=== PATIENT | female | born 1955 | race African-American/Black ===

== ENCOUNTER → 2016-04-04 | Outpatient (CLI) | payer MEDICARE ==
[2013-11-22 18:00] VITALS: BP 154/81
[~2016-04-04] MED LIST: AMLO10TA4 PO; ASPI-482 PO; CLON0.2T PO; HYDR200T5 PO; LOSA1TAB17 PO; MELO-156 PO
--- NOTE | 2016-04-04 12:19 | KCIC ---
PROCEDURE Bilateral digital screening mammogram. HISTORY 60-year-old female presents for screening mammography. TECHNIQUE Full field digital craniocaudal, exaggerated craniocaudal and mediolateral oblique views of both breasts are obtained. Computer-aided detection is applied. COMPARISON 03/09/2015 FINDINGS Breast parenchymal composition: Level C - Heterogeneously dense. There is a round circumscribed nodule within the right axillary tail, likely a lymph node. This is not seen on prior studies likely due to the prior field of view. There are benign calcifications. There is no architectural distortion. IMPRESSION BI-RADS Category 0: Additional imaging needed. Further evaluation with a right axillary tail sonogram to confirm benign morphology of a suspected lymph node is recommended, given suspected exclusion of this finding from the field of view on prior studies. Mammography is not 100% sensitive in detecting breast cancer. Therefore, a self breast exam and a clinical breast exam are very important. A negative mammogram does not negate a clinically suspicious finding and should not result in a delay in biopsying a clinically suspicious abnormality. This patient's information has been entered into a reminder system for the patient to be notified with the results of this examination and a target date for her next mammograms. Electronically signed by: Aleena Cruz (Apr 04, 2016 12:17:11)
== END | disposition home or self-care (01) ==
LOC: KCIC MAMMO 11:04
PROVIDERS: ATTEND Family Medicine
DX: Z12.31 Encounter for screening mammogram for malignant neoplasm of breast (principal)
CPT/HCPCS: G0202; 77067

== ENCOUNTER → 2016-04-10 | Outpatient (CLI) | payer MEDICARE ==
[2013-11-22 18:00] VITALS: BP 154/81
--- NOTE | 2016-05-01 08:52 | KCIC ---
PROCEDURE Right breast ultrasound. HISTORY Abnormal screening mammogram. TECHNIQUE Limited real-time grayscale imaging of the right upper breast and axilla is performed and images are obtained. COMPARISON Bilateral screening mammogram from 04/04/2016. FINDINGS There is a well-defined morphologically normal lymph node measuring 8.3 x 1.8 x 5.1 millimeter in the right axilla. This corresponds to the mammographic abnormality. No additional solid or cystic mass lesion is identified. IMPRESSION A benign appearing morphologically normal lymph node in the right axilla corresponds to the mammographic abnormality. No further workup is considered necessary. BI-RADS 2. Patient may return for annual screening mammography in 1 year. Electronically signed by: Olivia Chiang MD (May 01, 2016 08:51:37)
== END | disposition home or self-care (01) ==
LOC: KCIC US 08:12
PROVIDERS: ATTEND Family Medicine
DX: R92.8 Other abnormal and inconclusive findings on diagnostic imaging of breast (principal)
CPT/HCPCS: 76641

== ENCOUNTER 2016-06-24 02:56 | Emergency (ER) | payer MEDICARE ==
[~2016-06-24] VITALS: Ht 162.6 cm; Wt 83.9 kg
[2016-06-24 03:13] VITALS: BP 169/86
--- NOTE | 2016-06-24 03:21 | PHYS DOC ---
Past Medical History Past Medical History: CVA, Hypertension Past Surgical History: Hysterectomy, Other Additional Past Surgical Histo: bilat knee replacement Alcohol Use: None Drug Use: None Adult General Chief Complaint Chief Complaint: Neck Pain [facility] HPI Patient is a 60 year old female who presents with left-sided neck pain and sharp shooting pain down her left arm. Patient states his positional and when she turns her head to the left the pain is reproducible. She denies any trauma to the neck. Patient denies any chest pain or shortness of breath. Patient states she has had blood pressure but no specific cardiac history. She takes tramadol which is prescribed her from her substance addiction coordinator and is unable to take Motrin but also takes Tylenol. Pertinent physical exam findings: When patient turns her head to the left and axial load is applied to the top of the head this sharp shooting pain is reproduced on the left arm ED course: 317: C-spine x-ray ordered, Decadron 10 mg given IM 0330: Discussed x-ray results with the patient and the plan to treat with steroids and the take home pain medications for further discomfort. Patient is comfortable going home. Pertinent results: Extremities C-spine shows DJD no obvious fracture seen ED medical decision making: After reviewing the chart, chief complaint, history of present illness, past medical history, physical exam, x-rays I do not believe the patient has a severe neck fracture warranted further workup and admission at this time. I believe the patient has a cervical radiculopathy from her DJD. We'll place the patient on steroids and the patient are to has pain medication at home from her substance addiction coordinator. Recommend she follow up with her PCP and her substance addiction coordinator for further evaluation and has been in the next 1-2 days. Additional verbal discharge instructions were provided to the patient and that if symptoms get worse or any new symptoms arise that are worrisome to the patient she is to return to the emergency room immediately. Review of Systems Review of Systems Constitutional: Denies fever or chills [] Eyes: Denies change in visual acuity, redness, or eye pain [] HENT: Neck pain Respiratory: Denies cough or shortness of breath [] Cardiovascular: No additional information not addressed in HPI [] GI: Denies abdominal pain, nausea, vomiting, bloody stools or diarrhea [] : Denies dysuria or hematuria [] Musculoskeletal: Denies back pain or joint pain [] Integument: Denies rash or skin lesions [] Current Medications Current Medications Current Medications Medications (Trade) Dose Ordered Sig/Pearl Start Time Stop Time Status Last Admin Dose Admin Dexamethasone Sodium Phosphate (Decadron) 10 mg 1X ONCE 06/24/16 03:45 06/24/16 03:46 06/24/16 03:29 10 MG Allergies Allergies Allergies Coded Allergies Type Severity Reaction Last Updated Verified No Known Drug Allergies 11/11/13 No Physical Exam Physical Exam Constitutional: Well developed, well nourished, no acute distress, non-toxic appearance. [] HENT: Normocephalic, atraumatic, bilateral external ears normal, oropharynx moist, no oral exudates, nose normal. [] Eyes: PERRLA, EOMI, conjunctiva normal, no discharge. [] Neck: When patient turns her head to the left and axial compression load is applied to the top of the head there are sharp shooting pain radiating down to her left shoulder and left arm [] Cardiovascular:Heart rate regular rhythm, no murmur [] Lungs & Thorax: Bilateral breath sounds clear to auscultation [] Abdomen: Bowel sounds normal, soft, no tenderness, no masses, no pulsatile masses. [] Skin: Warm, dry, no erythema, no rash. [] Back: No tenderness, no CVA tenderness. [] Extremities: No tenderness, no cyanosis, no clubbing, ROM intact, no edema. [] Neurologic: Alert and oriented X 3, normal motor function, normal sensory function, no focal deficits noted. [] Psychologic: Affect normal, judgement normal, mood normal. [] Current Patient Data Vital Signs Vital Signs Date Time Temp Pulse Resp B/P (MAP) Pulse Ox O2 Delivery O2 Flow Rate FiO2 06/24/16 03:13 99.3 83 20 95 Room Air 99.3 EKG EKG [] Radiology/Procedures Radiology/Procedures Three-view x-ray of the C-spine No obvious fracture [] Course & Med Decision Making Course & Med Decision Making Pertinent Labs and Imaging studies reviewed. (See chart for details) [] Dragon Disclaimer Dragon Disclaimer This electronic medical record was generated, in whole or in part, using a voice recognition dictation system. Departure Departure Impression: Primary Impression: Radiculopathy affecting upper extremity Additional Impression: Cervical radiculopathy Disposition: 01 HOME, SELF-CARE Condition: IMPROVED Referrals: PADMINI NUR MD (PCP) Patient Instructions: Cervical Radiculopathy Additional Instructions: Please follow-up with PCP in one to 2 days Scripts Prednisone (PREDNISONE) 50 Mg Tablet 1 TAB PO DAILY, #5 TAB Prov: LOTTIE PENA DO 06/24/16 Problem Qualifiers LOTTIE PENA DO June 24, 2016 03:21
[2016-06-24] MEDS ORDERED: PRED50TA PO (03:40)
[2016-06-24] MEDS ORDERED: DEXAMETHASONE SOD PHOS 4 MG/ML VIAL IM ONE (03:45)
--- NOTE | 2016-06-24 08:01 | RAD ---
Examination: 3 views of the cervical spine History: History of neck pain Comparison: None available Findings: Severe degenerative changes identified in the cervical spine throughout. There may be bony fusion of the C4-C5 vertebral bodies. The facets appear to be well aligned. No evidence of prevertebral soft tissue swelling identified. The lateral masses of C1 are aligned with C2 vertebra. The C2 dens appears intact. Impression: Severe degenerative changes cervical spine.
== END 2016-06-24 03:57 | disposition home or self-care (01) ==
LOC: ER 02:56
DX: M54.12 Radiculopathy, cervical region (principal); I10 Essential (primary) hypertension; Z86.73 Personal history of transient ischemic attack (TIA), and cerebral infarction without residual deficits
CPT/HCPCS: 72040; 96372; 99284; J1100

== ENCOUNTER 2016-07-02 01:19 | Emergency (ER) | payer MEDICARE ==
[~2016-07-02] VITALS: Ht 165.1 cm; Wt 83.9 kg
[~2016-07-02 01:19] MED LIST changes: +PRED50TA PO
[2016-07-02] MEDS ORDERED: NAPROXEN 250 MG TABLET PO ONE (02:30)
--- NOTE | 2016-07-02 02:49 | ED.ADGEN ---
Past Medical History Past Medical History: CVA, Hypertension Past Surgical History: Hysterectomy, Other Additional Past Surgical Histo: bilat knee replacement Alcohol Use: None Drug Use: None Adult General Chief Complaint Chief Complaint: Neck Pain HPI HPI Patient is a 60 year old woman, history of CVA, hypertension, who presents emergency Department with a complaint of left-sided neck pain. Patient was seen for this complaint several days ago in the emergency department. At that time she was diagnosed with a likely radiculopathy from arthritis in her neck, prescribed steroids that she she has been taking. Patient has an appointment to follow up with a medical billing specialist on the of this month, follow-up of an evaluation to diagnose possible rheumatoid arthritis. Patient states that she did attempt to follow-up with a primary care provider but has not yet taken a call back from office. She states that the pain is isolated and the left side of her neck, is tender to palpation, is painful with motion. She states she initially noted the pain several mornings ago when she woke up, states she could 've slept on it wrong to initially trigger the symptoms but it has been persistent. No trauma, no recurrent visits to chiropractor, no vision changes, no radiation of the pain into the extremities or chest or back, she states she had one episode of vomiting today after taking her prednisone pill and an empty stomach, denies any nausea or vomiting since then, any abdominal pain. No weakness, numbness or tingling. Review of Systems Review of Systems Constitutional: Denies fever or chills. [] Eyes: Denies change in visual acuity. [] HENT: Denies nasal congestion or sore throat. [] Respiratory: Denies cough or shortness of breath. [] Cardiovascular: Denies chest pain or edema. [] GI: Denies abdominal pain, nausea, vomiting, bloody stools or diarrhea. [] : Denies dysuria. [] Musculoskeletal: Denies back pain or joint pain. Left-sided neck pain, worse with motion. Integument: Denies rash. [] Neurologic: Denies headache, focal weakness or sensory changes. [] Endocrine: Denies polyuria or polydipsia. [] Lymphatic: Denies swollen glands. [] Psychiatric: Denies depression or anxiety. [] Current Medications Current Medications Current Medications Medications (Trade) Dose Ordered Sig/Pearl Start Time Stop Time Status Last Admin Dose Admin Diazepam (Valium) 5 mg 1X ONCE 07/02/16 02:30 07/02/16 02:31 DC 07/02/16 02:54 5 MG Naproxen (Naprosyn) 250 mg 1X ONCE 07/02/16 02:30 07/02/16 02:31 DC 07/02/16 02:54 250 MG Allergies Allergies Allergies Coded Allergies Type Severity Reaction Last Updated Verified No Known Drug Allergies 11/11/13 No Physical Exam Physical Exam Constitutional: Well developed, well nourished, no acute distress, non-toxic appearance. [] HENT: Normocephalic, atraumatic, bilateral external ears normal, oropharynx moist, no oral exudates, nose normal. [] Eyes: PERRLA, EOMI, conjunctiva normal, no discharge. [] Neck: Normal range of motion, tenderness palpation along the lateral aspect of the left neck, extending into the sternocleidomastoid muscles, tissue tension noted in this region, no midline tenderness, no sepsis or deformities, no lesions or evidence of injury, supple, no stridor. [] Cardiovascular:Heart rate regular rhythm, no murmur, S1, S2, rubs or gallops. [] Lungs & Thorax: Bilateral breath sounds clear to auscultation , no wheezing, rhonchi, rales. No chest tenderness or crepitus. [] Abdomen: Bowel sounds normal, soft, no tenderness, no rebound, rigidity, no guarding, no masses, no pulsatile masses. [] Skin: Warm, dry, no erythema, no rash. [] Back: No tenderness, no CVA tenderness. [] Extremities: No tenderness, no cyanosis, no clubbing, ROM intact, no edema. Negative Homans sign. [] Neurologic: Alert and oriented X 3, normal motor function, normal sensory function, no focal deficits noted. [] Psychologic: Affect normal, judgement normal, mood normal. [] Current Patient Data Vital Signs Vital Signs Date Time Temp Pulse Resp B/P (MAP) Pulse Ox O2 Delivery O2 Flow Rate FiO2 07/02/16 01:50 97.1 84 16 171/80 (110) 100 Room Air 97.1 EKG EKG Not indicated. [] Radiology/Procedures Radiology/Procedures [][facility] [address] [place] [address] IMAGING REPORT Signed PATIENT: AMBER MASON ACCOUNT: [id number] : 1955 LOCATION: ER AGE: 60 SEX: F EXAM STATUS: DEP ER ORD. PHYSICIAN: LOTTIE PENA DO REASON: neck pain PROCEDURE: CERVICAL SPINE 2-3V Examination: 3 views of the cervical spine History: History of neck pain Comparison: None available Findings: Severe degenerative changes identified in the cervical spine throughout. There may be bony fusion of the C4-C5 vertebral bodies. The facets appear to be well aligned. No evidence of prevertebral soft tissue swelling identified. The lateral masses of C1 are aligned with C2 vertebra. The C2 dens appears intact. Impression: Severe degenerative changes cervical spine. DICTATED and SIGNED BY: BRYAN MAYERS MD DATE: 06/24/16757 CC: PADMINI NUR MD; LOTTIE PENA DO ~ Course & Med Decision Making Course & Med Decision Making Pertinent Labs and Imaging studies reviewed. (See chart for details) Patient received I am Valium, and oral naproxen in the ED was tolerating without issue. On reevaluation she states she is feeling much better, and is able to move the neck without discomfort. Patient with ambulatory trial in the emergency department, and voiding without difficulty, discussed importance of follow-up with her primary care provider and medical billing specialist for additional evaluation, medication instructions and precautions, as patient is being discharged with low-dose cyclobenzaprine and naproxen to be used as needed, patient voiced understanding with plan to follow-up, and medication precautions and instructions as stated. Discharged home in stable condition with her with plan as above. Dragon Disclaimer Dragon Disclaimer This electronic medical record was generated, in whole or in part, using a voice recognition dictation system. Departure Impression: Primary Impression: Neck pain Additional Impression: Muscle pain Disposition: 01 HOME, SELF-CARE Condition: IMPROVED Scripts Cyclobenzaprine Hcl (CYCLOBENZAPRINE HCL) 5 Mg Tablet 1 TAB PO TID, #12 TAB Prov: ANTONIA WILLETT DO 07/02/16 Naproxen (NAPROXEN) 250 Mg Tablet 250 MG PO BID, #10 Prov: ANTONIA WILLETT DO 07/02/16 Problem Qualifiers ANTONIA WILLETT DO July 02, 2016 02:49
[2016-07-02 03:30] VITALS: BP 137/74
[2016-07-02] MEDS ORDERED: NAPR250T2 PO (03:52)
[2016-07-02] MEDS ORDERED: CYCL5TAB PO (03:52)
== END 2016-07-02 04:00 | disposition home or self-care (01) ==
LOC: ER 01:19
DX: M46.92 Unspecified inflammatory spondylopathy, cervical region (principal); M79.1 Myalgia; I10 Essential (primary) hypertension; Z86.73 Personal history of transient ischemic attack (TIA), and cerebral infarction without residual deficits; Z96.653 Presence of artificial knee joint, bilateral
CPT/HCPCS: 96372; 99284; J3360

== ENCOUNTER → 2017-05-10 | Outpatient (CLI) | payer MEDICARE | END | disposition home or self-care (01) | LOC: KCIC 14:41 | DX: M43.16 Spondylolisthesis, lumbar region (principal); M51.37 Other intervertebral disc degeneration, lumbosacral region; M41.86 Other forms of scoliosis, lumbar region; M81.8 Other osteoporosis without current pathological fracture | CPT/HCPCS: 72110 ==

== ENCOUNTER 2017-05-21 16:14 | Emergency (ER) | payer MEDICARE ==
[2017-05-21 17:54] LABS: BILIRUBIN,URINE NEGATIVE (NEG); CLARITY,URINE CLEAR; COLOR,URINE YELLOW; GLUCOSE,URINE NEGATIVE (NEG); NITRITE,URINE NEGATIVE (NEG); PH,URINE 6.5; PROTEIN,URINE NEGATIVE (NEG-TRACE)
[2017-05-21] MEDS: ONDANSETRON PF 4 MG/2 ML VIAL. IV (18:31)
[2017-05-21] MEDS: KETOROLAC 15 MG/ML VIAL. IV (18:32)
[2017-05-21 18:34] LABS: BACTERIA,URINE FEW /HPF (0-FEW); RBC,URINE OCC /HPF (0-2); SQUAMOUS EPITHELIAL CELL,UR FEW /LPF; WBC,URINE OCC /HPF (0-4)
[2017-05-21] MEDS: fentaNYL PF VIAL 100 MCG/2 ML VIAL IV ×2 (18:36→20:11)
[2017-05-21 18:37] LABS: ADD MAN DIFF? NO
[2017-05-21 18:40] LABS: BASO # 0.1 x10^3/uL (0.0-0.2); BASO % 1 % (0-3); EOS # 0.8 x10^3/uL (0.0-0.7); EOS % 15 % (0-3); HEMATOCRIT 36.3 % (36.0-47.0); LYMPH # 1.8 x10^3/uL (1.0-4.8); LYMPH % 32 % (24-48); MEAN CORPUSCULAR HEMOGLOBIN 29 pg (25-35); MEAN CORPUSCULAR HGB CONC 33 g/dL (31-37); MEAN CORPUSCULAR VOLUME 89 fL (79-100); MONO # 0.9 x10^3/uL (0.0-1.1); MONO % 16 % (0-9); NEUT % 36 % (31-73); PLATELET COUNT 191 x10^3/uL (140-400); RED BLOOD COUNT 4.08 x10^6/uL (3.50-5.40); RED CELL DISTRIBUTION WIDTH 13.4 % (11.5-14.5); WHITE BLOOD COUNT 5.5 x10^3/uL (4.0-11.0)
[2017-05-21] MEDS: DEXAMETHASONE SOD PHOS 4 MG/ML VIAL IV (18:40)
[2017-05-21 18:55] LABS: ANION GAP 7 (6-14); BLOOD UREA NITROGEN 20 mg/dL (7-20); BUN/CREATININE RATIO 14 (6-20); CALCIUM 9.6 mg/dL (8.5-10.1); CARBON DIOXIDE 29 mmol/L (21-32); CHLORIDE 104 mmol/L (98-107); CREATININE 1.4 mg/dL (0.6-1.0); GFR 46.6; GLUCOSE 94 mg/dL (70-99); SODIUM 140 mmol/L (136-145)
[2017-05-21 19:02] LABS: ALBUMIN 3.8 g/dL (3.4-5.0); ALBUMIN/GLOBULIN RATIO 0.9 (1.0-1.7); ALK PHOS 112 U/L (46-116); ALT (SGPT) 26 U/L (14-59); AST (SGOT) 24 U/L (15-37); TOTAL BILIRUBIN 0.3 mg/dL (0.2-1.0); TOTAL PROTEIN 7.9 g/dL (6.4-8.2)
[2017-05-21 19:03] LABS: TROPONINI < 0.017 ng/mL (0.000-0.055)
[2017-05-21] MEDS: POTASSIUM CHLORIDE 20 MEQ TABLET.ER. PO (20:10)
== END 2017-05-21 20:28 | disposition home or self-care (01) ==
LOC: ER 16:14
DX: M06.9 Rheumatoid arthritis, unspecified (principal); G89.29 Other chronic pain; I10 Essential (primary) hypertension; Z86.73 Personal history of transient ischemic attack (TIA), and cerebral infarction without residual deficits; Z96.653 Presence of artificial knee joint, bilateral
CPT/HCPCS: 36415; 72128; 72131; 80053; 81001; 84484; 85025; 93005; 96374; 96375; 96376; 99285-25; J1100; J1885; J2405; J3010

== ENCOUNTER → 2017-05-23 | Outpatient (CLI) | payer MEDICARE | END | disposition home or self-care (01) | LOC: KCIC MRI 12:56 | DX: M48.061 Spinal stenosis, lumbar region without neurogenic claudication (principal); M51.36 Other intervertebral disc degeneration, lumbar region; M25.78 Osteophyte, vertebrae | CPT/HCPCS: 72148 ==

== ENCOUNTER → 2017-06-12 | Outpatient (CLI) | payer MEDICARE ==
[~2017-06-12] MED LIST changes: -AMLO10TA4 PO; -ASPI-482 PO; -CLON0.2T PO; -HYDR200T5 PO; +IOHEXOL 180 MG/ML 10 ML VIAL.; -LOSA1TAB17 PO; -MELO-156 PO; -PRED50TA PO; +methylPREDNISolone ACETATE 40 MG/ML VIAL.; +methylPREDNISolone ACETATE 80 MG/ML VIAL.
== END | disposition home or self-care (01) ==
LOC: PNCL 11:53
DX: M51.16 Intervertebral disc disorders with radiculopathy, lumbar region (principal); I10 Essential (primary) hypertension; M19.90 Unspecified osteoarthritis, unspecified site; H91.92 Unspecified hearing loss, left ear; Z86.73 Personal history of transient ischemic attack (TIA), and cerebral infarction without residual deficits; Z90.710 Acquired absence of both cervix and uterus; Z96.653 Presence of artificial knee joint, bilateral; Z98.49 Cataract extraction status, unspecified eye; Z79.82 Long term (current) use of aspirin; Z79.899 Other long term (current) drug therapy; Z82.49 Family history of ischemic heart disease and other diseases of the circulatory system; Z83.3 Family history of diabetes mellitus; Z82.0 Family history of epilepsy and other diseases of the nervous system
CPT/HCPCS: 62323; J1030; J1040; Q9965

== ENCOUNTER → 2017-06-26 | Outpatient (CLI) | payer MEDICARE | END | disposition home or self-care (01) | LOC: PNCL 10:45 | DX: M51.16 Intervertebral disc disorders with radiculopathy, lumbar region (principal) | CPT/HCPCS: 99214 ==

== ENCOUNTER → 2017-07-10 | Outpatient (CLI) | payer MEDICARE ==
[~2017-07-10] MED LIST changes: +LIDOCAINE 1% PF 2 ML VIAL.
== END ==
LOC: PNCL 09:13
DX: M51.16 Intervertebral disc disorders with radiculopathy, lumbar region (principal); I10 Essential (primary) hypertension; M06.9 Rheumatoid arthritis, unspecified; F41.9 Anxiety disorder, unspecified; F17.200 Nicotine dependence, unspecified, uncomplicated; Z90.710 Acquired absence of both cervix and uterus; Z96.653 Presence of artificial knee joint, bilateral; Z90.721 Acquired absence of ovaries, unilateral; Z86.73 Personal history of transient ischemic attack (TIA), and cerebral infarction without residual deficits
CPT/HCPCS: 62323; J1030; J1040; Q9965

== ENCOUNTER → 2017-07-18 | Outpatient (CLI) | payer MEDICARE | END | disposition home or self-care (01) | LOC: KCIC MAMMO 12:08 | DX: Z12.31 Encounter for screening mammogram for malignant neoplasm of breast (principal) | CPT/HCPCS: 77067 ==

== ENCOUNTER → 2017-08-23 | Outpatient (CLI) | payer MEDICARE | END | disposition home or self-care (01) | LOC: PNCL 09:12 | DX: M51.16 Intervertebral disc disorders with radiculopathy, lumbar region (principal); I10 Essential (primary) hypertension; F41.9 Anxiety disorder, unspecified; Z90.710 Acquired absence of both cervix and uterus; Z90.721 Acquired absence of ovaries, unilateral; Z90.79 Acquired absence of other genital organ(s); M06.9 Rheumatoid arthritis, unspecified; Z86.73 Personal history of transient ischemic attack (TIA), and cerebral infarction without residual deficits; Z96.653 Presence of artificial knee joint, bilateral; F17.200 Nicotine dependence, unspecified, uncomplicated | CPT/HCPCS: 62323; J1030; J1040; Q9965 ==

== ENCOUNTER → 2018-01-11 | Outpatient (CLI) | payer MEDICARE ==
[2017-05-21 20:20] VITALS: BP 144/81
[~2018-01-11] MED LIST changes: +ADAL40PE SQ; +AMLO10TA4 PO; +ARAVA20 MG PO; +ASPI-482 PO; +CLON0.2T PO; +CYCL5TAB PO; +GABA-585 PO; +HYDR-2761 PO; +HYDR200T5 PO; -IOHEXOL 180 MG/ML 10 ML VIAL.; -LIDOCAINE 1% PF 2 ML VIAL.; +LOSA1TAB22 PO; +MELO7.5T29 PO; +NAPR250T6 PO; +OXYC1TAB15 PO; +PRED50TA PO; +TRAM50TA PO; -methylPREDNISolone ACETATE 40 MG/ML VIAL.; -methylPREDNISolone ACETATE 80 MG/ML VIAL.
--- NOTE | 2018-01-11 15:48 | KCIC ---
Right lower extremity arterial duplex ultrasound 01/11/2018 INDICATION: Right lower extremity nonhealing wound COMPARISON STUDY: None Discussion: Ultrasound evaluation of the major arteries of the right lower extremity was performed including color Doppler imaging spectral analysis. Mild diffuse atherosclerotic vascular disease is seen throughout the major arteries of the right lower extremity. No definitively hemodynamically significant stenosis is identified in regards to velocity elevation, or high-grade visual stenosis on color Doppler imaging. No major arterial occlusion is identified. IMPRESSION: No sonographic evidence of hemodynamically significant stenosis involving the major arteries of the right lower extremity. Electronically signed by: Gareth Glynn MD (01/11/2018 3:44 PM) [id number]
== END | disposition home or self-care (01) ==
LOC: KCIC US 13:51
PROVIDERS: ATTEND Family Medicine
DX: S81.801D Unspecified open wound, right lower leg, subsequent encounter (principal); I70.291 Other atherosclerosis of native arteries of extremities, right leg; X58.XXXD Exposure to other specified factors, subsequent encounter
CPT/HCPCS: 93926

== ENCOUNTER → 2018-02-19 | Outpatient (CLI) | payer MEDICARE ==
[2017-05-21 20:20] VITALS: BP 144/81
== END | disposition home or self-care (01) ==
LOC: PMGWOUND 08:14
PROVIDERS: ATTEND Emergency Medicine Undersea and Hyperbaric Medicine
DX: L97.811 Non-pressure chronic ulcer of other part of right lower leg limited to breakdown of skin (principal); L88 Pyoderma gangrenosum; I10 Essential (primary) hypertension; M06.9 Rheumatoid arthritis, unspecified; F41.9 Anxiety disorder, unspecified; Z90.710 Acquired absence of both cervix and uterus; Z86.73 Personal history of transient ischemic attack (TIA), and cerebral infarction without residual deficits
CPT/HCPCS: G0463

== ENCOUNTER → 2018-02-26 | Outpatient (CLI) | payer MEDICARE ==
[2017-05-21 20:20] VITALS: BP 144/81
== END | disposition home or self-care (01) ==
LOC: PMGWOUND 08:26
PROVIDERS: ATTEND Emergency Medicine Undersea and Hyperbaric Medicine
DX: L97.212 Non-pressure chronic ulcer of right calf with fat layer exposed (principal); L88 Pyoderma gangrenosum; I10 Essential (primary) hypertension; M06.9 Rheumatoid arthritis, unspecified; F41.9 Anxiety disorder, unspecified; Z87.891 Personal history of nicotine dependence; Z90.710 Acquired absence of both cervix and uterus; Z86.73 Personal history of transient ischemic attack (TIA), and cerebral infarction without residual deficits
CPT/HCPCS: 11042

== ENCOUNTER → 2018-03-05 | Outpatient (CLI) | payer MEDICARE ==
[2017-05-21 20:20] VITALS: BP 144/81
== END | disposition home or self-care (01) ==
LOC: PMGWOUND 08:57
PROVIDERS: ATTEND Emergency Medicine Undersea and Hyperbaric Medicine
DX: L97.211 Non-pressure chronic ulcer of right calf limited to breakdown of skin (principal); L88 Pyoderma gangrenosum; I10 Essential (primary) hypertension; M06.9 Rheumatoid arthritis, unspecified; F41.9 Anxiety disorder, unspecified; Z87.891 Personal history of nicotine dependence; Z90.710 Acquired absence of both cervix and uterus; Z96.653 Presence of artificial knee joint, bilateral; Z86.73 Personal history of transient ischemic attack (TIA), and cerebral infarction without residual deficits
CPT/HCPCS: 97597

== ENCOUNTER → 2018-03-12 | Outpatient (CLI) | payer MEDICARE ==
[2017-05-21 20:20] VITALS: BP 144/81
== END | disposition home or self-care (01) ==
LOC: PMGWOUND 08:51
PROVIDERS: ATTEND Nurse Practitioner Family
DX: L97.811 Non-pressure chronic ulcer of other part of right lower leg limited to breakdown of skin (principal); L88 Pyoderma gangrenosum; I10 Essential (primary) hypertension; M06.9 Rheumatoid arthritis, unspecified; F41.9 Anxiety disorder, unspecified; Z87.891 Personal history of nicotine dependence; Z90.710 Acquired absence of both cervix and uterus; Z86.73 Personal history of transient ischemic attack (TIA), and cerebral infarction without residual deficits
CPT/HCPCS: 93923; 97597

== ENCOUNTER → 2018-03-19 | Outpatient (CLI) | payer MEDICARE ==
[2017-05-21 20:20] VITALS: BP 144/81
== END | disposition home or self-care (01) ==
LOC: PMGWOUND 09:04
PROVIDERS: ATTEND Emergency Medicine Undersea and Hyperbaric Medicine
DX: L88 Pyoderma gangrenosum (principal); I10 Essential (primary) hypertension; M06.9 Rheumatoid arthritis, unspecified; F41.9 Anxiety disorder, unspecified; Z87.891 Personal history of nicotine dependence; Z90.710 Acquired absence of both cervix and uterus; Z86.73 Personal history of transient ischemic attack (TIA), and cerebral infarction without residual deficits
CPT/HCPCS: 99214; G0463

== ENCOUNTER → 2018-03-25 | Outpatient (CLI) | payer MEDICARE ==
[2017-05-21 20:20] VITALS: BP 144/81
== END | disposition home or self-care (01) ==
LOC: PMGWOUND 12:57
PROVIDERS: ATTEND Emergency Medicine Undersea and Hyperbaric Medicine
DX: L88 Pyoderma gangrenosum (principal); I10 Essential (primary) hypertension; M16.9 Osteoarthritis of hip, unspecified; F41.9 Anxiety disorder, unspecified; M06.9 Rheumatoid arthritis, unspecified; Z96.653 Presence of artificial knee joint, bilateral; Z87.891 Personal history of nicotine dependence; Z90.710 Acquired absence of both cervix and uterus; Z86.73 Personal history of transient ischemic attack (TIA), and cerebral infarction without residual deficits
CPT/HCPCS: 99214; G0463

== ENCOUNTER → 2018-03-25 | Outpatient (CLI) | payer MEDICARE ==
[2017-05-21 20:20] VITALS: BP 144/81
--- NOTE | 2018-03-25 16:18 | RAD ---
Right lower extremity venous insufficiency ultrasound exam, 03/25/2018: History: Nonhealing wound Duplex evaluation of the greater saphenous and lesser saphenous veins in the right lower extremity was performed including grayscale, color-flow and spectral Doppler analysis. The right greater saphenous vein is patent throughout its course without significant reflux. It measures 9-10 mm at the saphenofemoral junction level. A patent anterior accessory saphenous vein is also noted in the right thigh. The right lesser saphenous vein is also patent and does not demonstrate significant reflux. Mild subcutaneous edema is present in the right lower leg. IMPRESSION: No evidence of significant venous reflux in the saphenous veins in the right lower extremity.
== END | disposition home or self-care (01) ==
LOC: US 14:10
PROVIDERS: ATTEND Nurse Practitioner Family
DX: S80.921D Unspecified superficial injury of right lower leg, subsequent encounter (principal); R60.0 Localized edema; X58.XXXD Exposure to other specified factors, subsequent encounter
CPT/HCPCS: 93971

== ENCOUNTER → 2018-04-01 | Outpatient (CLI) | payer MEDICARE ==
[2017-05-21 20:20] VITALS: BP 144/81
== END | disposition home or self-care (01) ==
LOC: PMGWOUND 09:10
PROVIDERS: ATTEND Emergency Medicine Undersea and Hyperbaric Medicine
DX: L97.821 Non-pressure chronic ulcer of other part of left lower leg limited to breakdown of skin (principal); L88 Pyoderma gangrenosum; M06.9 Rheumatoid arthritis, unspecified; I10 Essential (primary) hypertension; I73.9 Peripheral vascular disease, unspecified; F41.9 Anxiety disorder, unspecified; M16.10 Unilateral primary osteoarthritis, unspecified hip; Z87.891 Personal history of nicotine dependence; Z90.710 Acquired absence of both cervix and uterus; I25.10 Atherosclerotic heart disease of native coronary artery without angina pectoris; Z86.73 Personal history of transient ischemic attack (TIA), and cerebral infarction without residual deficits
CPT/HCPCS: 99214; G0463

== ENCOUNTER → 2018-04-08 | Outpatient (CLI) | payer MEDICARE ==
[2017-05-21 20:20] VITALS: BP 144/81
== END | disposition home or self-care (01) ==
LOC: PMGWOUND 09:17
PROVIDERS: ATTEND Emergency Medicine Undersea and Hyperbaric Medicine
DX: L88 Pyoderma gangrenosum (principal); I10 Essential (primary) hypertension; M06.9 Rheumatoid arthritis, unspecified; F41.9 Anxiety disorder, unspecified; E78.5 Hyperlipidemia, unspecified; I73.9 Peripheral vascular disease, unspecified; M16.10 Unilateral primary osteoarthritis, unspecified hip; I25.10 Atherosclerotic heart disease of native coronary artery without angina pectoris; Z90.710 Acquired absence of both cervix and uterus; Z87.891 Personal history of nicotine dependence; Z86.73 Personal history of transient ischemic attack (TIA), and cerebral infarction without residual deficits
CPT/HCPCS: 97597

== ENCOUNTER → 2018-04-15 | Outpatient (CLI) | payer MEDICARE ==
[2017-05-21 20:20] VITALS: BP 144/81
== END | disposition home or self-care (01) ==
LOC: PMGWOUND 09:14
PROVIDERS: ATTEND Emergency Medicine Undersea and Hyperbaric Medicine
DX: L88 Pyoderma gangrenosum (principal); E78.5 Hyperlipidemia, unspecified; F41.9 Anxiety disorder, unspecified; I10 Essential (primary) hypertension; M06.9 Rheumatoid arthritis, unspecified; I73.9 Peripheral vascular disease, unspecified; M16.10 Unilateral primary osteoarthritis, unspecified hip; Z87.891 Personal history of nicotine dependence; Z90.710 Acquired absence of both cervix and uterus; I25.10 Atherosclerotic heart disease of native coronary artery without angina pectoris; Z86.73 Personal history of transient ischemic attack (TIA), and cerebral infarction without residual deficits
CPT/HCPCS: 99214; G0463

== ENCOUNTER → 2018-04-22 | Outpatient (CLI) | payer MEDICARE ==
[2017-05-21 20:20] VITALS: BP 144/81
== END | disposition home or self-care (01) ==
LOC: PMGWOUND 09:53
PROVIDERS: ATTEND Emergency Medicine Undersea and Hyperbaric Medicine
DX: L97.811 Non-pressure chronic ulcer of other part of right lower leg limited to breakdown of skin (principal); L88 Pyoderma gangrenosum; E78.5 Hyperlipidemia, unspecified; F41.9 Anxiety disorder, unspecified; I10 Essential (primary) hypertension; M06.9 Rheumatoid arthritis, unspecified; I73.9 Peripheral vascular disease, unspecified; M19.90 Unspecified osteoarthritis, unspecified site; M16.10 Unilateral primary osteoarthritis, unspecified hip; I25.10 Atherosclerotic heart disease of native coronary artery without angina pectoris; Z87.891 Personal history of nicotine dependence; Z90.710 Acquired absence of both cervix and uterus; Z86.73 Personal history of transient ischemic attack (TIA), and cerebral infarction without residual deficits
CPT/HCPCS: 99214; G0463

== ENCOUNTER → 2018-04-29 | Outpatient (CLI) | payer MEDICARE ==
[2017-05-21 20:20] VITALS: BP 144/81
== END | disposition home or self-care (01) ==
LOC: PMGWOUND 09:59
PROVIDERS: ATTEND Emergency Medicine Undersea and Hyperbaric Medicine
DX: L88 Pyoderma gangrenosum (principal); E78.5 Hyperlipidemia, unspecified; F41.9 Anxiety disorder, unspecified; I10 Essential (primary) hypertension; M06.9 Rheumatoid arthritis, unspecified; I73.9 Peripheral vascular disease, unspecified; M19.90 Unspecified osteoarthritis, unspecified site; M16.10 Unilateral primary osteoarthritis, unspecified hip; I25.10 Atherosclerotic heart disease of native coronary artery without angina pectoris; Z90.710 Acquired absence of both cervix and uterus; Z96.653 Presence of artificial knee joint, bilateral; Z87.891 Personal history of nicotine dependence; Z86.73 Personal history of transient ischemic attack (TIA), and cerebral infarction without residual deficits
CPT/HCPCS: 11042; 97597

== ENCOUNTER → 2018-05-06 | Outpatient (CLI) | payer MEDICARE ==
[2017-05-21 20:20] VITALS: BP 144/81
== END | disposition home or self-care (01) ==
LOC: PMGWOUND 10:19
PROVIDERS: ATTEND Emergency Medicine Undersea and Hyperbaric Medicine
DX: L88 Pyoderma gangrenosum (principal); I10 Essential (primary) hypertension; M06.9 Rheumatoid arthritis, unspecified; F41.9 Anxiety disorder, unspecified; E78.5 Hyperlipidemia, unspecified; I73.9 Peripheral vascular disease, unspecified; M16.10 Unilateral primary osteoarthritis, unspecified hip; I25.10 Atherosclerotic heart disease of native coronary artery without angina pectoris; Z96.653 Presence of artificial knee joint, bilateral; Z90.710 Acquired absence of both cervix and uterus; Z86.73 Personal history of transient ischemic attack (TIA), and cerebral infarction without residual deficits
CPT/HCPCS: 97597

== ENCOUNTER → 2018-09-06 | Outpatient (CLI) | payer MEDICARE ==
[2017-05-21 20:20] VITALS: BP 144/81
--- NOTE | 2018-09-06 13:48 | KCIC ---
Bilateral digital screening mammograms with 3-D tomosynthesis: Reason for examination: Routine screening. Comparison is made to previous studies dated back to 03/09/2015. Bilateral mammograms in CC and oblique projections were obtained with 2-D imaging and 3-D tomosynthesis imaging on a Siemens Inspiration unit and reviewed on the workstation. Interpretation was made with the benefit of CAD. The skin and nipples show no abnormalities. No abnormal axillary lymph nodes are seen. The breast parenchyma is heterogeneously dense. (Breast density: Category C.) There are no dominant masses, suspicious calcifications or architectural distortion. Impression: No evidence of malignancy. Recommend routine screening. Your patient's mammogram demonstrates that she has dense breast tissue (breast density category C or D), which could hide abnormalities, and if she has other risk factors for breast cancer that have been identified, she might benefit from supplemental screening tests that may be suggested by you as her ordering physician. Dense breast tissue, in and of itself, is a relatively common condition. Therefore, this information is not provided to cause undue concern, but rather to raise your awareness and to promote discussion with your patient regarding the presence of other risk factors, in addition to dense breast tissue. Your patient's mammography results will be sent to her. BI-RAD Category 1: Negative. "Our facility is accredited by the [employer] Mammography Program." This patient's information has been entered into a reminder system for the patient to be notified with the results of her examination and a target date for the next mammogram. Electronically signed by: Lindsey Magallon MD (09/06/2018 1:46 PM) [email or web address]
--- NOTE | 2018-09-06 14:25 | KCIC ---
LUMBAR SPINE WO CONTRAST Date: 09/06/2018 11:45 AM Indication: Low back pain, bilateral lower extremity weakness Comparison: 05/30/2017. Technique: Multi-planar multi-weighted magnetic resonance imaging of the lumbar spine was performed without intravenous contrast using the standard lumbar spine protocol. FINDINGS: S-shaped thoracolumbar curvature. 8 mm anterolisthesis at L3-4. No acute fracture. Moderate multilevel degenerative disc desiccation and disc height loss. Multilevel degenerative endplate changes. Slightly low-lying conus medullaris terminates at the level of L2-3. No abnormal signal is seen within the visualized distal spinal cord. No clumping of intrathecal nerve roots. No soft tissue abnormality in the visualized abdomen or pelvis. T11-T12: Not included on axial imaging. Disc bulge and facet arthropathy. Moderate spinal stenosis. Severe left and moderate right neural foraminal narrowing. T12-L1: Not included on axial imaging. Disc bulge. No significant spinal stenosis. Mild foraminal narrowing. L1-L2: Disc bulge. Mild facet arthropathy. No significant spinal stenosis or neural foraminal narrowing. L2-L3: Disc bulge. Mild facet arthropathy. No significant spinal stenosis or neural foraminal narrowing. L3-L4: Anterolisthesis with uncovering of the disc and disc bulge. Severe facet arthropathy. Ligamentum flavum thickening. Moderate spinal stenosis and lateral recess. Severe right and mild to moderate left neural foraminal narrowing. L4-L5: Disc bulge. Moderate facet arthropathy. No spinal stenosis. Moderate bilateral neural foraminal narrowing. L5-S1: Disc bulge. Mild right and moderate left facet arthropathy. No spinal stenosis. Mild right and moderate to severe left neural foraminal narrowing. IMPRESSION: Lumbar spondylosis, detailed level by level above. Degenerative changes are overall very similar to the prior exam of 05/30/2017. Electronically signed by: Willy Mcgee MD (09/06/2018 2:22 PM) [id number]
== END | disposition home or self-care (01) ==
LOC: KCIC MRI 10:02
PROVIDERS: ATTEND Family Medicine
DX: Z12.31 Encounter for screening mammogram for malignant neoplasm of breast (principal); M47.816 Spondylosis without myelopathy or radiculopathy, lumbar region; M51.27 Other intervertebral disc displacement, lumbosacral region; M48.04 Spinal stenosis, thoracic region; M48.07 Spinal stenosis, lumbosacral region; M46.87 Other specified inflammatory spondylopathies, lumbosacral region
CPT/HCPCS: 72148; 77067

== ENCOUNTER → 2019-01-22 | Outpatient (CLI) | payer MEDICARE ==
[2017-05-21 20:20] VITALS: BP 144/81
--- NOTE | 2019-01-22 16:16 | RAD ---
Ankle-brachial index. Right lower extremity arterial duplex ultrasound. 01/22/2019 INDICATION: Nonhealing wound, right leg COMPARISON STUDY: Right lower extremity arterial duplex ultrasound January 11, 2018. TECHNIQUE: Ultrasound evaluation of the major arteries of the right lower extremity was performed including color Doppler imaging and spectral analysis. Blood pressure measurements were also obtained at the arms and right ankle . Discussion: Right brachial pressure: 125 mmHg Left brachial pressure: 116 mmHg Right ankle pressure: 138 mm Right BILLY 1.1 (normal). Mild diffuse atherosclerotic vascular disease is noted. Essentially normal waveforms and velocities are seen throughout the major arteries of the right lower extremity. No focal elevation of velocities is identified. No high-grade visual narrowing is seen on color Doppler imaging. IMPRESSION: 1. Normal right ankle brachial index 2. No sonographic evidence of hemodynamically significant stenosis involving the major arteries of the right lower extremity Electronically signed by: Gareth Glynn MD (01/22/2019 4:13 PM) [id number]
== END | disposition home or self-care (01) ==
LOC: US 11:56
PROVIDERS: ATTEND Emergency Medicine Undersea and Hyperbaric Medicine
DX: I70.291 Other atherosclerosis of native arteries of extremities, right leg (principal); L97.919 Non-pressure chronic ulcer of unspecified part of right lower leg with unspecified severity
CPT/HCPCS: 93922; 93926

== ENCOUNTER 2019-02-14 11:24 | Emergency (ER) | payer MEDICARE ==
[~2019-02-14] VITALS: Ht 167.6 cm; Wt 81.6 kg
--- NOTE | 2019-02-14 13:12 | PHYS DOC ---
Past Medical History Past Medical History: Arthritis, CVA, Diabetes-Type II, Hypertension, Other Additional Past Medical Histor: rheumatoid arthritis, NEUROPATHY, DIABETIC ULCERS Past Surgical History: Hysterectomy, Other Additional Past Surgical Histo: bilat knee replacement Additional Information: nonsmoker Alcohol Use: None Drug Use: None Adult General Chief Complaint Chief Complaint: LOWER EXT PAIN HPI HPI Patient is a 63-year-old female with a past medical history of diabetes, hypertension, CVA there is presenting to the emergency department with right leg pain. Patient states that this problem has occurred for a couple weeks. She has baseline neuropathy from diabetes but she describes this as a different, pain. She states the pain starts in her lower back and radiates down the right leg. Patient denies any leg swelling. Patient has had a lumbar x-ray to evaluate this pain that was negative for acute fractures. Patient is been managing the pain at home with gabapentin and hydrocodone to no relief. Patient denies nausea, vomiting, fever, chills, chest pain, shortness of breath, abdominal pain, constipation, and diarrhea. Patient denies trauma. She denies numbness or tingling down the legs, denies saddle anesthesia, denies loss of bowel or bladder function. Review of Systems Review of Systems Constitutional: Denies fever or chills Eyes: Denies redness or eye pain HENT: Denies nasal congestion or sore throat Respiratory: Denies cough or shortness of breath Cardiovascular: Denies chest pain or palpitations GI: Denies abdominal pain, nausea, or vomiting : Denies dysuria or hematuria Musculoskeletal: Denies joint pain, reports back pain Integument: Denies rash or skin lesions Neurologic: Denies headache, focal weakness or sensory changes Complete systems were reviewed and found to be within normal limits, except as documented in this note. Current Medications Current Medications Current Medications Medications (Trade) Dose Ordered Sig/Pearl Start Time Stop Time Status Last Admin Dose Admin Dexamethasone (Decadron) 10 mg 1X ONCE 02/14/19 13:30 02/14/19 13:31 DC 02/14/19 13:22 10 MG Orphenadrine Citrate (Norflex) 60 mg 1X ONCE 02/14/19 13:15 02/14/19 13:16 DC 02/14/19 13:22 60 MG Allergies Allergies Allergies Coded Allergies Type Severity Reaction Last Updated Verified No Known Drug Allergies 11/11/13 No Physical Exam Physical Exam Constitutional: Well developed, well nourished, no acute distress, non-toxic appearance HENT: Normocephalic, atraumatic, oropharynx moist Eyes: Conjunctiva normal, no discharge Neck: Normal range of motion, no tenderness, supple Cardiovascular: Heart rate normal, regular rhythm Lungs & Thorax: Bilateral breath sounds clear to auscultation, no wheezing Abdomen: Soft, no tenderness Skin: Warm, dry, no erythema, no rash Back: Lumbar paraspinal tenderness, no midline tenderness Extremities: No tenderness, ROM intact, no edema Neurologic: Alert and oriented X 3, no focal deficits noted Psychologic: Affect normal, judgement normal, mood normal Current Patient Data Vital Signs Vital Signs Date Time Temp Pulse Resp B/P (MAP) Pulse Ox O2 Delivery O2 Flow Rate FiO2 02/14/19 12:49 98.3 67 16 146/68 (94) 98 Room Air 98.3 EKG EKG [] Radiology/Procedures Radiology/Procedures [] Course & Med Decision Making Course & Med Decision Making Patient is a 63-year-old female with past medical history of diabetes, CVA, hypertension and is presenting to the emergency department with a couple weeks worth of low back pain. Patient was seen and examined at bedside. Physical exam was significant for lumbar paraspinal tenderness, no midline tenderness. Patient denies any leg swelling. Symptomatic treatment given. Patient states that her last A1c was 7, steroids given. Symptomatic improvement. Patient stable for discharge with outpatient follow-up with PCP. Discussed findings and plan with patient and family, who acknowledge understanding and agreement. Dragon Disclaimer Dragon Disclaimer This electronic medical record was generated, in whole or in part, using a voice recognition dictation system. Departure Departure Impression: Primary Impression: Back pain Additional Impression: Sciatica Disposition: HOME, SELF-CARE Condition: STABLE Referrals: RAYNE WADDELL (PCP) INGE LAGOS MD Patient Instructions: Back Pain, Adult, [id number], Sciatica, [id number] Scripts Lidocaine (Lidocaine PATCH ) 1 Each Adh..patch 1 EACH TP DAILY for FOR LOCAL PAIN, #5 PATCH 0 Refills REMOVE AFTER 12 HOURS, leave off for 24 hours before replacement of the patch Prov: AQUILES GRANDA DO 02/14/19 Orphenadrine Citrate (ORPHENADRINE CITRATE) 100 Mg Tablet.er 100 MG PO BID PRN for MUSCLE SPASMS, #14 TAB 0 Refills Prov: AQUILES GRANDA DO 02/14/19 Prednisone (PREDNISONE) 20 Mg Tablet 2 TAB PO DAILY PRN for COUGH for 4 Days, #8 TAB Prov: AQUILES GRANDA DO 02/14/19 Problem Qualifiers Primary Impression: Back pain Back pain location: low back pain Chronicity: chronic Back pain laterality: right Sciatica presence: with sciatica Sciatica laterality: sciatica of right side Qualified Codes: M54.41 - Lumbago with sciatica, right side; G89.29 - Other chronic pain Additional Impression: Sciatica Laterality: right Qualified Codes: M54.31 - Sciatica, right side AQUILES GRANDA DO Feb 14, 2019 13:12
[2019-02-14] MEDS ORDERED: PRED20TA PO (13:15)
[2019-02-14] MEDS ORDERED: ORPHENADRINE CITRATE 60 MG/2 ML VIAL. IM ONE (13:15)
[2019-02-14] MEDS ORDERED: ORPH100T PO (13:18)
[2019-02-14] MEDS ORDERED: LIDO700A21 TP (13:26)
[2019-02-14] MEDS ORDERED: DEXAMETHASONE 4 MG TABLET PO ONE (13:30)
[2019-02-14 14:00] VITALS: BP 139/65
== END 2019-02-14 14:16 | disposition home or self-care (01) ==
LOC: ER 11:24
DX: M54.41 Lumbago with sciatica, right side (principal); G89.29 Other chronic pain; E11.40 Type 2 diabetes mellitus with diabetic neuropathy, unspecified; I10 Essential (primary) hypertension; Z90.710 Acquired absence of both cervix and uterus; Z96.653 Presence of artificial knee joint, bilateral; Z86.73 Personal history of transient ischemic attack (TIA), and cerebral infarction without residual deficits
CPT/HCPCS: 96372; 99284; J2360; J8540

== ENCOUNTER → 2019-03-10 | Outpatient (CLI) | payer MEDICARE ==
[2019-02-14 14:00] VITALS: BP 139/65
[~2019-03-10] MED LIST changes: +LIDO700A21 TP; +ORPH100T PO; +PRED20TA PO
--- NOTE | 2019-03-10 16:04 | KCIC ---
MRI Cervical Spine Without Contrast History: Bilateral leg pain, neck pain Technique: Multiplanar, multi sequential noncontrast MR imaging was performed of the cervical spine. Comparison: None other than June 24, 2016 cervical spine radiographs Findings: There is motion degradation. There is osseous interbody fusion at C4-5, also fusion of the posterior elements. There is grade 1 anterior spondylolisthesis C3-4 on the order of 3 mm. There is mild to moderate reversal of the lordotic curvature centered near C4-5. There is advanced degenerative disc disease C3-4 and C5-C6 through T1-T2. There is some amorphous edema about the C6-7 and T1-2 endplates likely reactive/degenerative in etiology. Not fully included, there are some T2 hyperintense foci of the visualized thyroid gland, largest on the left about 2.2 cm. C2-C3: Neural foramina and spinal canal are adequate. C3-C4: There is partial uncovering the posterior aspect of the disc due to spondylolisthesis with. Central canal is narrowed to about 8 to 9 mm. There is bilateral facet degenerative change. Accurate evaluation of the neural foramina is limited due to motion. There may be mild neural foramina compromise bilaterally as suggested on the sagittal images although does not appear as significant on the axial images. C4-C5: Neural foramina and spinal canal are adequate. C5-C6: Neural foramina and spinal canal are adequate. There is negligible disc osteophyte complex. C6-C7: There is disc osteophyte complex, central canal narrowed to about 9 to 10 mm. Accurate characterization of the neural foramina is limited due to motion, likely overall adequate. C7-T1: There is disc osteophyte complex and bulge, central canal narrowed to about 8 to 9 mm. There is uncovertebral degenerative change bilaterally. Accurate characterization of the neural foramina is limited due to motion, probable moderate to severe right and [id number] left neural foramina compromise. T1-T2: There is bulge/broad posterior protrusion about 2 mm AP. Central canal is narrowed to about 9 mm. Facet degenerative change contributes to likely moderate to severe left and [id number] right neural foramina compromise. Impression: 1. There is spinal stenosis about 8 to 9 mm at C3-4 and C7-T1 and to a somewhat lesser degree at C6-7 and T1-2 as described. 2. There is multilevel cervical degenerative disc disease. There is osseous interbody fusion at C4-5, also fusion of the posterior elements at this level. 3. Accurate characterization of the neural foramina is limited due to motion, suspected neural foramina compromise as described most notable left greater than right at T1-T2 and right greater than left at C7-T1. 4. Not fully included, there are T2 hyperintense foci of the thyroid gland more accurately characterized by ultrasound. 5. There is grade 1 anterior spondylolisthesis C3-4. There is reversal of the lordotic curvature centered near C4-5. Electronically signed by: Willy Henley MD (03/10/2019 4:01 PM) [email or web address]
--- NOTE | 2019-03-10 16:15 | KCIC ---
MRI Thoracic Spine without contrast History: Severe mid back pain, neck pain, bilateral leg pain right greater than left Technique: Multiplanar, multi sequential noncontrast MR imaging was performed of the thoracic spine. Comparison: CT thoracic spine exam May 21, 2017, no previous thoracic MRI exam available Findings: There is motion degradation. Thoracic vertebral body stature and AP alignment are overall maintained. There is moderate dextroscoliosis centered near T9. There is multilevel degenerative disc disease greater inferiorly of the thoracic spine, and facet degenerative disease T9-T10 through T11-T12, to a lesser degree of more superior levels. Thoracic cord caliber is within normal limits without defined or expansile signal abnormality. There is T2 hyperintense lesion underlying the skin surface of the left parasagittal back near the T6-7 level about 2.5 cm CC by 1.8 cm AP by 1.7 cm transverse. Levels with abnormalities include: T1-T2: This level was described for cervical spine exam, left greater than right neural foramina compromise. T5-T6: Facet degenerative change results in mild posterior narrowing of the right neural foramen. T9-T10: Facet degenerative change contributes to mild posterior narrowing of the left neural foramen. T10-11: Facet degenerative change and probably a minimal disc osteophyte complex contributes to fairly severe narrowing on the left neural foramen. T11-12: There is buckling of the ligamentum flavum and facet degenerative change, mild narrowing of the far left lateral recess. There is disc osteophyte complex and likely protrusion in the inferior left neural foramen and left extraforaminal region, in combination with facet degenerative change, resulting in severe narrowing of the left neural foramen with contact of the exiting left T11 nerve root. T12-L1: There is a shallow protrusion in the right lateral recess without significant spinal stenosis. Impression: 1. There is thoracic dextroscoliosis. There is no significant thoracic spinal stenosis, mild left lateral recess stenosis T11-12. There is variable thoracic neural foramina compromise in part from facet degenerative change greatest on the left at T11-T12 and T10-11. 2. There is a cystic lesion underlying the skin surface of the mid back region, may be a large sebaceous cyst although otherwise cannot be further characterized. Presumably this would be palpable. Electronically signed by: Willy Henley MD (03/10/2019 4:12 PM) [email or web address]
== END | disposition home or self-care (01) ==
LOC: KCIC MRI 13:10
PROVIDERS: ATTEND Family Medicine
DX: M50.33 Other cervical disc degeneration, cervicothoracic region (principal); M48.03 Spinal stenosis, cervicothoracic region; M43.12 Spondylolisthesis, cervical region; M25.78 Osteophyte, vertebrae
CPT/HCPCS: 72141; 72146

== ENCOUNTER 2019-06-17 07:23 | Day surgery (SDC) | payer MEDICARE ==
[~2019-06-17 07:23] MED LIST changes: +ATOR20TA58 PO; +CAND1TAB34 PO; +DOXY100C2 PO; +HYDROmorphone 2 MG/ML VIAL IV PRN; +IV RINGERS,LACTATED 1000ML 1,000 ML IV SCH; +LIDOCAINE 1% PF 2 ML VIAL. ID PRN; +METF500T16 PO; +METO-247 PO; +MORPHINE SULFATE 2 MG/ML VIAL. IV PRN; +ONDANSETRON PF 4 MG/2 ML VIAL. IV PRN; +PRED5TAB PO; +PROCHLORPERAZINE 10 MG/2 ML VIAL. IV PRN; +TIZA4TAB2 PO; +fentaNYL PF VIAL 100 MCG/2 ML VIAL IV PRN
[2019-06-17] MEDS ORDERED: MINERAL OIL for SURGERY 10 ML VIAL. MC ONE (07:27)
[2019-06-17] MEDS ORDERED: ROCURONIUM 50 MG/5 ML VIAL. ONE (08:30)
[2019-06-17] MEDS ORDERED: LIDOCAINE 2% PF 5 ML VIAL. ONE (08:30)
[2019-06-17] MEDS ORDERED: SEVOFLURANE 31 TO 60 MINUTES. IH ONE (08:30)
[2019-06-17] MEDS ORDERED: DEXAMETHASONE SOD PHOS 4 MG/ML VIAL ONE (08:30)
[2019-06-17] MEDS ORDERED: PROPOFOL 10 MG/ML (20ML) VIAL. IV ONE (08:30)
[2019-06-17] MEDS ORDERED: ONDANSETRON PF 4 MG/2 ML VIAL. ONE (08:30)
--- NOTE | 2019-06-17 08:48 | PDOC1 ---
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 Pt has been following with wound care and has had improvement, but presents today for STSG for aid in healing. She denies pain in ulcer but notes joint pain secondary to arthritis. Past Medical History Cardiovascular: HTN CENTRAL NERVOUS SYSTEM: CVA Past Surgical History Past Surgical History: No pertinent history Family History Family History: No Significant Social History Smoke: No Current Medications Current Medications Current Medications Ondansetron HCl (Zofran) 4 mg PRN Q6HRS PRN IV NAUSEA/VOMITING; Start 06/17/19 at 07:00; Stop 06/18/19 at 06:59 Fentanyl Citrate (Fentanyl 2ml Vial) 25 mcg PRN Q5MIN PRN IV MILD PAIN 1-3; Start 06/17/19 at 07:00; Stop 06/18/19 at 06:59 Fentanyl Citrate (Fentanyl 2ml Vial) 50 mcg PRN Q5MIN PRN IV MODERATE TO SEVERE PAIN; Start 06/17/19 at 07:00; Stop 06/18/19 at 06:59 Morphine Sulfate (Morphine Sulfate) 1 mg PRN Q10MIN PRN IV SEVERE PAIN 7-10; Start 06/17/19 at 07:00; Stop 06/18/19 at 06:59 Ringer's Solution 1,000 ml @ 30 mls/hr Q24H IV Last administered on 06/17/19at 08:22; Start 06/17/19 at 07:00; Stop 06/17/19 at 18:59 Lidocaine HCl (Xylocaine-Mpf 1% 2ml Vial) 2 ml PRN 1X PRN ID PRIOR TO IV START; Start 06/17/19 at 07:00; Stop 06/18/19 at 06:59 Hydromorphone HCl (Dilaudid) 0.5 mg PRN Q10MIN PRN IV SEV PAIN, Second choice; Start 06/17/19 at 07:00; Stop 06/18/19 at 06:59 Prochlorperazine Edisylate (Compazine) 5 mg PACU PRN PRN IV NAUSEA, MRX1; Start 06/17/19 at 07:00; Stop 06/18/19 at 06:59 Mineral Oil (Muri-Lube) 10 ml STK-MED ONCE MC ; Start 06/17/19 at 07:27; Stop 06/17/19 at 07:28; Status DC Dexamethasone Sodium Phosphate (Decadron) 4 mg STK-MED ONCE .ROUTE ; Start 06/17/19 at 08:30; Stop 06/17/19 at 08:30; Status DC Sevoflurane (Ultane) 30 ml STK-MED ONCE IH ; Start 06/17/19 at 08:30; Stop 06/17/19 at 08:30; Status DC Propofol (Diprivan) 200 mg STK-MED ONCE IV ; Start 06/17/19 at 08:30; Stop at 08:30; Status DC Lidocaine HCl (Lidocaine Pf 2% Vial) 5 ml STK-MED ONCE .ROUTE ; Start 06/17/19 at 08:30; Stop 06/17/19 at 08:30; Status DC Ondansetron HCl (Zofran) 4 mg STK-MED ONCE .ROUTE ; Start 06/17/19 at 08:30; Stop 06/17/19 at 08:30; Status DC Rocuronium Seanor (Zemuron) 50 mg STK-MED ONCE .ROUTE ; Start 06/17/19 at 08:30; Stop 06/17/19 at 08:31; Status DC Active Scripts Active Reported Doxycycline Hyclate 100 Mg Capsule 1 Cap PO BID Atorvastatin Calcium 20 Mg Tablet 1 Tab PO DAILY Metformin Hcl 500 Mg Tablet 500 Mg PO BIDWMEALS Atacand Hct 32-25 Mg Tablet (Candesartan/Hydrochlorothiazid) 1 Each Tablet 1 Tab PO DAILY 30 Days Metoprolol Succinate ( Xl ) (Metoprolol Succinate) 100 Mg Tab.er.24h 1 Tab PO DAILY Prednisone 5 Mg Tablet 5 Mg PO BID Tizanidine Hcl 4 Mg Tablet 4 Mg PO TID PRN Arava (Leflunomide) 20 Mg Tablet 1 Tab PO DAILY Gabapentin (Gabapentin) 100 Mg Capsule 400 Mg PO DAILY Hydrocodone-Apap 5-325 (Hydrocodone Bit/Acetaminophen) 1 Each Tablet 1 Tab PO PRN Q6HRS PRN Tramadol Hcl 50 Mg Tablet 50 Mg PO DAILY PRN Aspir 81 (Aspirin) 81 Mg Tablet.dr 81 Mg PO DAILY Norvasc (Amlodipine Besylate) 10 Mg Tablet 10 Mg PO DAILY Allergies Allergies: Coded Allergies: No Known Drug Allergies (Unverified , 06/17/19) ROS Musculoskeletal: Yes Joint Pain Physical Exam General: Alert, Oriented X3, Cooperative, No acute distress HEENT: Atraumatic Lungs: Normal air movement Skin: Other (right posterior calf ulcer 2 x 2 cm diameter, clean graulation of base) Psych/Mental Status: Mental status NL, Mood NL Vitals Vitals Vital Signs Date Time Temp Pulse Resp B/P (MAP) Pulse Ox O2 Delivery O2 Flow Rate FiO2 06/17/19 08:19 98.0 65 18 178/84 94 Room Air 98.0 Labs Labs Laboratory Tests Test 06/17/19 08:12 Glucose (Fingerstick) 114 mg/dL (70-99) Laboratory Tests Test 06/17/19 08:12 Glucose (Fingerstick) 114 mg/dL (70-99) VTE Prophylaxis Ordered VTE Prophylaxis Devices: Contraindicated VTE Pharmacological Prophylaxi: No Assessment/Plan Assessment/Plan Non healing ulcer right posterior thigh. TO OR for split thickness skin graft. site marked with pt in preop. R/R/B/A d/w pt and pt's supportive . Risks, including, but not limited to: bleeding, infection, damage to surrounding structures, risk of anesthesia, risk of graft failure. They appear to understand, their questions are answered and they elect to proceed. MACI MARCOS MD June 17, 2019 08:48
[2019-06-17] MEDS ORDERED: ePHEDrine PF IN SALINE 50 MG/10 ML SYRINGE. IV ONE (08:53)
[2019-06-17] MEDS ORDERED: LIDOCAINE 1% Multi-Dose 20 ML VIAL. ONE (09:18)
--- NOTE | 2019-06-17 09:48 | PDOC4 ---
OPERATIVE NOTE Date: Date: June 17, 2019 Pre-Op Diagnosis: Non healing ulcer right posterior calf Post-Op Diagnosis: same Procedure Performed: Split thickness skin graft from right thigh to right posterior calf, 2x 2 cm Surgeon: Micky Marcos Anesthesia Type: GETA plus local Blood Loss: 10 Specimans Obtained: none Findings: 2 x 2 cm ulcer with good granulation and minimal fibrous debris Complications: none Operative Note: After obtaining informed consent, patient was taken to OR, induced under GETA and prepped in the usual fashion. 2 x 2 cm right thigh graft was harvested with dermatome. Donor site then obtained hemostasis with direct pressure. Aguacel and opsite dressing placed. Graft then taken down to right calf. Site prepped with pickup and scissors, removing minimal fibrous debris with good granulation. Graft secured with multiple 4 0 monocryl. Graft pie crusted with 15 blade and dressing placed. Patient tolerated procedure well and sent to PACU in stable condition. All counts correct. MACI MARCOS MD June 17, 2019 09:48
[2019-06-17 10:25] VITALS: BP 136/79
== END 2019-06-17 11:10 | disposition home or self-care (01) ==
LOC: SURG 07:23
PROVIDERS: ATTEND Surgery
DX: L97.818 Non-pressure chronic ulcer of other part of right lower leg with other specified severity (principal); I10 Essential (primary) hypertension; E11.9 Type 2 diabetes mellitus without complications; D64.9 Anemia, unspecified; F41.9 Anxiety disorder, unspecified; E78.00 Pure hypercholesterolemia, unspecified; Z87.891 Personal history of nicotine dependence; E66.3 Overweight; Z11.59 Encounter for screening for other viral diseases; Z68.29 Body mass index [BMI] 29.0-29.9, adult; Z96.653 Presence of artificial knee joint, bilateral; Z79.84 Long term (current) use of oral hypoglycemic drugs; Z79.82 Long term (current) use of aspirin; Z79.899 Other long term (current) drug therapy; Z98.42 Cataract extraction status, left eye; Z98.41 Cataract extraction status, right eye; Z90.710 Acquired absence of both cervix and uterus; Z90.721 Acquired absence of ovaries, unilateral; Z96.1 Presence of intraocular lens
CPT/HCPCS: 15100; 36415; 82962; 87635; A7015; J1100; J2405; J2704; J3490; A4461

== ENCOUNTER 2019-06-17 17:01 | Emergency (ER) | payer MEDICARE ==
[~2019-06-17] VITALS: Ht 167.6 cm; Wt 84.0 kg
[~2019-06-17 17:01] MED LIST changes: -HYDROmorphone 2 MG/ML VIAL IV PRN; -IV RINGERS,LACTATED 1000ML 1,000 ML IV SCH; -LIDOCAINE 1% PF 2 ML VIAL. ID PRN; -MORPHINE SULFATE 2 MG/ML VIAL. IV PRN; -ONDANSETRON PF 4 MG/2 ML VIAL. IV PRN; -PROCHLORPERAZINE 10 MG/2 ML VIAL. IV PRN; -fentaNYL PF VIAL 100 MCG/2 ML VIAL IV PRN
[2019-06-17 18:35] VITALS: BP 163/84
--- NOTE | 2019-06-17 18:59 | PHYS DOC ---
Past Medical History Past Medical History: Arthritis, CVA, Diabetes-Type II, Hypertension, Other Additional Past Medical Histor: rheumatoid arthritis, NEUROPATHY, DIABETIC ULCERS (ELIJAH WATSON GLASS GRINDER) Past Surgical History: Hysterectomy, Other Additional Past Surgical Histo: bilat knee replacement (ELIJAH WATSON GLASS GRINDER) Smoking Status: Never Smoker Alcohol Use: None Drug Use: None (ELIJAH WATSON GLASS GRINDER) General Adult EDM: Chief Complaint: POST-OP PROBLEM HPI: HPI: Patient is a 63 year old female who presents with today Dr Hays did a split thickness graft 2x2cm from Right upper thigh to the calf. Patient states she applied ice to the graft due to swelling and it began to bleed. (ELIJAH WATSON GLASS GRINDER) Review of Systems: Review of Systems: Integument: Denies rash. Graft site bleeding. [] (ELIJAH WATSON GLASS GRINDER) Heart Score: Risk Factors: Risk Factors: DM, Current or recent (<one month) smoker, HTN, HLP, family history of CAD, obesity. Risk Scores: Score 0 - 3: 2.5% MACE over next 6 weeks - Discharge Home Score 4 - 6: 20.3% MACE over next 6 weeks - Admit for Clinical Observation Score 7 - 10: 72.7% MACE over next 6 weeks - Early Invasive Strategies (ELIJAH WATSON GLASS GRINDER) Allergies: Allergies: Allergies Coded Allergies Type Severity Reaction Last Updated Verified No Known Drug Allergies 06/17/19 No (ELIJAH WATSON GLASS GRINDER) Physical Exam: PE: Constitutional: Well developed, well nourished, no acute distress, non-toxic appearance. [] HENT: Normocephalic, atraumatic, bilateral external ears normal, oropharynx moist, no oral exudates, nose normal. [] Eyes: PERRLA, EOMI, conjunctiva normal, no discharge. [] Neck: Normal range of motion, no tenderness, supple, no stridor. [] Cardiovascular:Heart rate regular rhythm, no murmur [] Lungs & Thorax: Bilateral breath sounds clear to auscultation [] Abdomen: Bowel sounds normal, soft, no tenderness, no masses, no pulsatile masses. [] Skin: Warm, dry, no erythema, no rash. Bleeding at right upper thigh graft site. [] Back: No tenderness, no CVA tenderness. [] Extremities: No tenderness, no cyanosis, no clubbing, ROM intact, no edema. [] Neurologic: Alert and oriented X 3, normal motor function, normal sensory function, no focal deficits noted. [] Psychologic: Affect normal, judgement normal, mood normal. [] (ELIJAH WATSON APRN) EKG: EKG: [] (ELIJAH WATSON APRN) Radiology/Procedures: Radiology/Procedures: [] (ELIJAH WATSON APRN) Course & Med Decision Making: Course & Med Decision Making Pertinent Labs and Imaging studies reviewed. (See chart for details) Right upper thigh graft has a clear bandage over it that is filled with blood. I took dressing off since it was saturated. The surgical area is oozing blood only. Bleeding is controlled. While maintaining sterile technique I replaced the surgical dressing with aquacel and a opsite just as was put on by Dr Hays. Patient tolerated well. I spoke to Dr Hays who states to apply a pressure dressing on top. Patient is discharged home. [] (ELIJAH WATSON APRN) Dragon Disclaimer: Dragon Disclaimer: This electronic medical record was generated, in whole or in part, using a voice recognition dictation system. (ELIJAH WATSON APRN) Departure Departure Impression: Primary Impression: Post surgical complication Qualified Codes: L76.82 - Other postprocedural complications of skin and subcutaneous tissue Disposition: 01 HOME, SELF-CARE Condition: LEFT WITHOUT BEING SEEN Referrals: RAYNE WADDELL (PCP) Patient Instructions: Medical Screening Exam Additional Instructions: Follow-up with Dr. Jiang as needed. Attending Signature Attending Signature I have reviewed the PA/CLEANING SUPERVISOR's note and plan of care. I was available for consultation as needed during the patient's visit in the emergency department. I agree with the clinical impression, plan, and disposition. (AQUILES GRANDA DO) ELIJAH WATSON APRN June 17, 2019 18:58 AQUILES GRANDA DO June 18, 2019 05:14
== END 2019-06-17 19:34 | disposition home or self-care (01) ==
LOC: ER 17:01
DX: L76.82 Other postprocedural complications of skin and subcutaneous tissue (principal); R58 Hemorrhage, not elsewhere classified; R60.0 Localized edema; M19.90 Unspecified osteoarthritis, unspecified site; I10 Essential (primary) hypertension; E11.40 Type 2 diabetes mellitus with diabetic neuropathy, unspecified; Z90.710 Acquired absence of both cervix and uterus; Z98.890 Other specified postprocedural states
CPT/HCPCS: 99284

== ENCOUNTER 2019-06-22 15:06 | Emergency (ER) | payer MEDICARE ==
[~2019-06-22] VITALS: Ht 165.1 cm; Wt 80.0 kg
[2019-06-22 15:42] VITALS: BP 144/73
--- NOTE | 2019-06-22 15:57 | PHYS DOC ---
Past Medical History Past Medical History: Arthritis, CVA, Diabetes-Type II, Hypertension, Other Additional Past Medical Histor: rheumatoid arthritis, NEUROPATHY, DIABETIC ULCERS Past Surgical History: Hysterectomy, Other Additional Past Surgical Histo: bilat knee replacement Smoking Status: Never Smoker Alcohol Use: None Drug Use: None General Adult EDM: Chief Complaint: WOUND CHECK HPI: HPI: Patient is a 63-year-old female who presents with concerns about her recent skin graft. She states she had a skin graft done to her right thigh approximately 5 days ago. She states she has noticed some oozing of blood from the edges of the wound over the last couple of days. Her bandage has blood on it. She is scheduled to see the wound center tomorrow. She has had no fever she is not noticed any redness and there is no pain to the area. [] Review of Systems: Review of Systems: Constitutional: Denies fever or chills. [] Eyes: Denies change in visual acuity. [] HENT: Denies nasal congestion or sore throat. [] Respiratory: Denies cough or shortness of breath. [] Cardiovascular: Denies chest pain or edema. [] GI: Denies abdominal pain, nausea, vomiting, bloody stools or diarrhea. [] : Denies dysuria. [] Musculoskeletal: Denies back pain or joint pain. [] Integument: Per HPI [] Neurologic: Denies headache, focal weakness or sensory changes. [] Endocrine: Denies polyuria or polydipsia. [] Lymphatic: Denies swollen glands. [] Psychiatric: Denies depression or anxiety. [] Heart Score: Risk Factors: Risk Factors: DM, Current or recent (<one month) smoker, HTN, HLP, family history of CAD, obesity. Risk Scores: Score 0 - 3: 2.5% MACE over next 6 weeks - Discharge Home Score 4 - 6: 20.3% MACE over next 6 weeks - Admit for Clinical Observation Score 7 - 10: 72.7% MACE over next 6 weeks - Early Invasive Strategies Allergies: Allergies: Allergies Coded Allergies Type Severity Reaction Last Updated Verified No Known Drug Allergies 06/17/19 No Physical Exam: PE: Constitutional: Well developed, well nourished, no acute distress, non-toxic a ppearance. [] HENT: Normocephalic, atraumatic, bilateral external ears normal, oropharynx moist, no oral exudates, nose normal. [] Eyes: PERRLA, EOMI, conjunctiva normal, no discharge. [] Neck: Normal range of motion, no tenderness, supple, no stridor. [] Cardiovascular:Heart rate regular rhythm, no murmur [] Lungs & Thorax: Bilateral breath sounds clear to auscultation [] Abdomen: Bowel sounds normal, soft, no tenderness, no masses, no pulsatile masses. [] Skin: Wound graft on the right thigh actually looks great there is some dried blood around the edges but no surrounding erythema and is nontender to palp.. [] Back: No tenderness, no CVA tenderness. [] Extremities: No tenderness, no cyanosis, no clubbing, ROM intact, no edema. [] Neurologic: Alert and oriented X 3, normal motor function, normal sensory function, no focal deficits noted. [] Psychologic: A anxious l. [] EKG: EKG: [] Radiology/Procedures: Radiology/Procedures: [] Course & Med Decision Making: Course & Med Decision Making Pertinent Labs and Imaging studies reviewed. (See chart for details) [] Dragon Disclaimer: Dragon Disclaimer: This electronic medical record was generated, in whole or in part, using a voice recognition dictation system. Departure Departure Impression: Primary Impression: Encounter for postoperative wound check Disposition: HOME, SELF-CARE Condition: STABLE Referrals: RAYNE WADDELL (PCP) Patient Instructions: Wound Check Additional Instructions: It is very important that you keep your appointment at the wound care center tomorrow as scheduled. JOSE DANIEL OCAMPO DO June 22, 2019 15:57
== END 2019-06-22 16:10 | disposition home or self-care (01) ==
LOC: ER 15:06
DX: L76.82 Other postprocedural complications of skin and subcutaneous tissue (principal); M19.90 Unspecified osteoarthritis, unspecified site; I10 Essential (primary) hypertension; E11.40 Type 2 diabetes mellitus with diabetic neuropathy, unspecified; Z98.890 Other specified postprocedural states; Z96.653 Presence of artificial knee joint, bilateral; Z90.710 Acquired absence of both cervix and uterus
CPT/HCPCS: 99282

== ENCOUNTER → 2019-09-30 | Outpatient (CLI) | payer MEDICARE ==
--- NOTE | 2019-09-30 17:04 | KCIC ---
Bilateral digital screening mammograms: Reason for examination: Routine screening. Comparison is made to previous studies dated back to 08/07/2012. Interpretation was made with the benefit of CAD. The skin and nipples show no abnormalities. No abnormal axillary lymph nodes are seen. The breast parenchyma is extremely dense. (Breast density: Category D.) There appears to be a new parenchymal density laterally in the left breast on cc view approximately 8 cm posterior to the nipple and measuring approximately 1 cm in size. Further evaluation with coned compression views and ultrasound is recommended. There are no other dominant masses, suspicious calcifications or architectural distortion. A few benign calcifications are again seen. Impression: Small 1 cm nodular density suggested posterior laterally in the left breast on cc view. Recommend further evaluation with coned compression views and ultrasound. Your patient's mammogram demonstrates that she has dense breast tissue (breast density category C or D), which could hide abnormalities, and if she has other risk factors for breast cancer that have been identified, she might benefit from supplemental screening tests that may be suggested by you as her ordering physician. Dense breast tissue, in and of itself, is a relatively common condition. Therefore, this information is not provided to cause undue concern, but rather to raise your awareness and to promote discussion with your patient regarding the presence of other risk factors, in addition to dense breast tissue. Your patient's mammography results will be sent to her. BI-RAD Category 0: Incomplete. Needs additional imaging evaluation. "Our facility is accredited by the [employer] Mammography Program." This patient's information has been entered into a reminder system for the patient to be notified with the results of her examination and a target date for the next mammogram. Electronically signed by: Lindsey Magallon MD (09/30/2019 5:01 PM) [facility]
== END | disposition home or self-care (01) ==
LOC: KCIC MAMMO 10:47
PROVIDERS: ATTEND Family Medicine
DX: Z12.31 Encounter for screening mammogram for malignant neoplasm of breast (principal); N64.89 Other specified disorders of breast
CPT/HCPCS: 77067

== ENCOUNTER 2019-10-22 12:32 | Emergency (ER) | payer MEDICARE ==
[~2019-10-22] VITALS: Ht 165.1 cm; Wt 76.3 kg
[2019-10-22 13:59] LABS: BASO % 1 % (0-3); EOS # 0.5 x10^3/uL (0.0-0.7); EOS % 10 % (0-3); HEMATOCRIT 30.7 % (36.0-47.0); HEMOGLOBIN 10.3 g/dL (12.0-15.5); LYMPH % 20 % (24-48); MEAN CORPUSCULAR HEMOGLOBIN 30 pg (25-35); MEAN CORPUSCULAR HGB CONC 33 g/dL (31-37); MEAN CORPUSCULAR VOLUME 89 fL (79-100); MONO # 0.7 x10^3/uL (0.0-1.1); MONO % 14 % (0-9); NEUT # 2.7 x10^3/uL (1.8-7.7); NEUT % 55 % (31-73); PLATELET COUNT 199 x10^3/uL (140-400); RED BLOOD COUNT 3.46 x10^6/uL (3.50-5.40); RED CELL DISTRIBUTION WIDTH 17.3 % (11.5-14.5); WHITE BLOOD COUNT 4.8 x10^3/uL (4.0-11.0)
[2019-10-22 14:04] LABS: CALCIUM 9.4 mg/dL (8.5-10.1); CREATININE 1.6 mg/dL (0.6-1.0); GFR 39.7; POTASSIUM 3.5 mmol/L (3.5-5.1)
--- NOTE | 2019-10-22 14:04 | PHYS DOC ---
Past Medical History Past Medical History: Arthritis, CVA, Diabetes-Type II, Hypertension, Other Additional Past Medical Histor: rheumatoid arthritis, NEUROPATHY, DIABETIC ULCERS ([facility]) Past Surgical History: Hysterectomy, Other Additional Past Surgical Histo: bilat knee replacement ([facility] [employer]) Smoking Status: Never Smoker Alcohol Use: None Drug Use: None ([facility] [employer]) General Adult EDM: Chief Complaint: HYPERTENSION HPI: HPI: Patient is a 63 year old female who presents with sent here after her appointment with Dr. Childress for her sciatic and other nerve pains. He sent her with a list of labs that he also wanted ordered. Patient states that Dr. Lane stated that her blood pressure was in the 200s in the office today. Patient's blood pressure currently in the ED is 173/81. Patient denies headache, dizziness, chest pain, shortness of air, cough, fever, dysuria symptoms, abdominal pain, nausea, vomiting, numbness or tingling, vision changes. Patient has a history of a previous stroke with right-sided deficit. She also has a history of hypertension, diabetes, high cholesterol, rheumatoid arthritis, neuropathy, diabetic ulcers, hysterectomy. She does complain of chronic right upper leg pain that starts in her back and goes down the lateral upper leg. She states it is been going on for the last [address] Childress has now stopped her gabapentin to see if that helps her pain. ([facility] [employer]) Review of Systems: Review of Systems: Constitutional: Denies fever or chills. [] Eyes: Denies change in visual acuity. [] HENT: Denies nasal congestion or sore throat. [] Respiratory: Denies cough or shortness of breath. [] Cardiovascular: Denies chest pain or edema. Hypertension. [] GI: Denies abdominal pain, nausea, vomiting, bloody stools or diarrhea. [] : Denies dysuria. [] Musculoskeletal: Denies back pain or joint pain. Chronic lateral upper leg pain. [] Integument: Denies rash. [] Neurologic: Denies headache, focal weakness or sensory changes. [] Endocrine: Denies polyuria or polydipsia. [] Lymphatic: Denies swollen glands. [] Psychiatric: Denies depression or anxiety. [] ([facility]AH W[facility]SON M [employer]) Heart Score: Risk Factors: Risk Factors: DM, Current or recent (<one month) smoker, HTN, HLP, family history of CAD, obesity. Risk Scores: Score 0 - 3: 2.5% MACE over next 6 weeks - Discharge Home Score 4 - 6: 20.3% MACE over next 6 weeks - Admit for Clinical Observation Score 7 - 10: 72.7% MACE over next 6 weeks - Early Invasive Strategies [facility] Allergies: Allergies: Allergies Coded Allergies Type Severity Reaction Last Updated Verified No Known Drug Allergies 06/17/19 No ([facility] Physical Exam: PE: Constitutional: Well developed, well nourished, no acute distress, non-toxic appearance. [] HENT: Normocephalic, atraumatic, bilateral external ears normal, oropharynx moist, no oral exudates, nose normal. [] Eyes: PERRLA, EOMI, conjunctiva normal, no discharge. [] Neck: Normal range of motion, no tenderness, supple, no stridor. [] Cardiovascular:Heart rate regular rhythm, no murmur [] Lungs & Thorax: Bilateral breath sounds clear to auscultation [] Abdomen: Bowel sounds normal, soft, no tenderness, no masses, no pulsatile masses. [] Skin: Warm, dry, no erythema, no rash. [] Back: No tenderness, no CVA tenderness. [] Extremities: No tenderness, no cyanosis, no clubbing, ROM intact, bilateral lower 1+ edema. [] Neurologic: Alert and oriented X 3, normal motor function, normal sensory function, chronic right-sided focal deficits noted. [] Psychologic: Affect normal, judgement normal, mood normal. [] ([facility] Current Patient Data: Vital Signs: Vital Signs Date Time Temp Pulse Resp B/P (MAP) Pulse Ox O2 Delivery O2 Flow Rate FiO2 10/22/19 13:10 98.3 82 18 191/91 (124) 100 Room Air 98.3 ([facility]) EKG: EK and read by Dr. Murphy as sinus rhythm, LVH repolarization and nonspecific ST changes. [] ([facility]) Radiology/Procedures: Radiology/Procedures: [] Impression: [facility] [address] [place] [address] IMAGING REPORT Signed PATIENT: AMBER MASON ACCOUNT: [id number] : 1955 LOCATION: ER AGE: 63 SEX: F EXAM STATUS: PRE ER ORD. PHYSICIAN: ELIJAH WATSON APRN REASON: hypertensive PROCEDURE: PORTABLE CHEST 1V PORTABLE CHEST 1V Clinical indications: Hypertension. Findings: Calcified granuloma of the right lung base is seen. No acute lung infiltrate or pleural effusion or pulmonary edema or lung mass or pneumothorax is seen. The heart size, pulmonary vasculature, mediastinum and both jason are unremarkable. Scoliosis is seen.. Impression: No acute radiographic abnormality is seen. Electronically signed by: Jean Marie Torres MD (10/22/2019 2:09 PM) [id number] DICTATED and SIGNED BY: JEAN MARIE TORRES MD DATE: 10/22/19 140 (ELIJAH WATSON APRN) Course & Med Decision Making: Course & Med Decision Making Pertinent Labs and Imaging studies reviewed. (See chart for details) Patient is having asymptomatic hypertension although her blood pressure has decreased dramatically from what Dr. Childress was reporting. Patient has 1+ bilateral lower extremity edema. Skin pink warm and dry. Vital signs within normal limits. Chest x-ray shows sinus rhythm with nonspecific ST changes with LVH And no STEMI. Lungs are clear to all station all lobes. Patient is is alert and oriented x4. Speaks in full complete sentences. Patient's blood pressure has remained in the 160s over 90s. Patient remains asymptomatic. I have spoken to Dr. Childress and he states that she is okay to be discharged and to follow-up with her primary care provider. [] (ELIJAH WATSON APRN) Course & Med Decision Making I have reviewed the PA/FREEZER UNLOADER's note and Plan of Care. I was available for consultation as needed during the patient's visit in the emergency department. I agree with the clinical impression, plans and disposition. (VERA MURPHY MD) Dragon Disclaimer: Dragirvin Disclaimer: This electronic medical record was generated, in whole or in part, using a voice recognition dictation system. (ELIJAH WATSON APRN) Departure Departure Impression: Primary Impression: Hypertension Qualified Codes: I10 - Essential (primary) hypertension Disposition: 01 HOME, SELF-CARE Condition: STABLE Referrals: RAYNE WADDELL (PCP) Patient Instructions: Hypertension Additional Instructions: Follow-up with primary care provider as soon as possible. Also follow-up with Dr. Childress. Continue taking all your medications as prescribed. If you began having dizziness, severe headache or chest pain and shortness of breath return emergency room. Justicifation of Admission Dx: Justifications for Admission: Justification of Admission Dx: N/A (ELIJAH WATSON APRN) Justification of Admission Dx: N/A (VERA MURPHY MD) ELIJAH WATSON APRN Oct 22, 2019 14:04 VERA MURPHY MD Oct 22, 2019 16:29
[2019-10-22 14:10] LABS: ALBUMIN 3.8 g/dL (3.4-5.0); TOTAL BILIRUBIN 0.2 mg/dL (0.2-1.0); TOTAL PROTEIN 7.7 g/dL (6.4-8.2)
--- NOTE | 2019-10-22 14:12 | RAD ---
PORTABLE CHEST 1V Clinical indications: Hypertension. Findings: Calcified granuloma of the right lung base is seen. No acute lung infiltrate or pleural effusion or pulmonary edema or lung mass or pneumothorax is seen. The heart size, pulmonary vasculature, mediastinum and both jason are unremarkable. Scoliosis is seen.. Impression: No acute radiographic abnormality is seen. Electronically signed by: Latrell Torres MD (10/22/2019 2:09 PM) [id number]
[2019-10-22 15:11] LABS: BILIRUBIN,URINE NEGATIVE (NEG); CLARITY,URINE CLEAR; COLOR,URINE YELLOW; NITRITE,URINE NEGATIVE (NEG); PH,URINE 6.5 (<5.0-8.0); PROTEIN,URINE 30 mg/dL (NEG-TRACE); UROBILINOGEN,URINE 0.2 mg/dL (0.2 mg/dL)
[2019-10-22 15:18] LABS: BACTERIA,URINE MANY /HPF (0-FEW); SQUAMOUS EPITHELIAL CELL,UR MANY /LPF
[2019-10-22 15:19] LABS: RBC,URINE RARE /HPF (0-2); WBC,URINE RARE /HPF (0-4)
[2019-10-22 15:30] VITALS: BP 169/91
--- NOTE | 2019-10-23 07:50 | EKG ---
[facility] [address] [place] [address] Test Date: 2019-10-22 Test Time: 13:00:38 Pat Name: AMBER MASON Department: Room: Gender: F Associate Director Of Sales: : 1955 Requested By: ELIJAH WATSON Order Number: [id number] Reading MD: Measurements Intervals [place] Rate: 82 P: 46 MO: 166 QRS: -28 QRSD: 104 T: 91 QT: 396 QTc: 466 Interpretive Statements SINUS RHYTHM LEFT ATRIAL ABNORMALITY LEFTWARD AXIS LVH WITH REPOLARIZATION ABNORMALITY ABNORMAL ECG RI6.02 No previous ECG available for comparison
[2019-10-24 16:10] LABS: ALBUM 3.8 g/dL (2.9-4.4); ALPHA 1 0.3 g/dL (0.0-0.4); ALPHA 2 0.8 g/dL (0.4-1.0); BETA 0.9 g/dL (0.7-1.3); GAMMA 1.3 g/dL (0.4-1.8); SPEP AG RATIO 1.2 (0.7-1.7)
== END 2019-10-22 16:16 | disposition home or self-care (01) ==
LOC: ER 12:32
DX: I10 Essential (primary) hypertension (principal); M79.604 Pain in right leg; R60.0 Localized edema; M19.90 Unspecified osteoarthritis, unspecified site; E11.40 Type 2 diabetes mellitus with diabetic neuropathy, unspecified; Z90.710 Acquired absence of both cervix and uterus; Z98.890 Other specified postprocedural states; Z86.73 Personal history of transient ischemic attack (TIA), and cerebral infarction without residual deficits
CPT/HCPCS: 36415; 71045; 80053; 81001; 82607; 82746; 83880; 84165; 84443; 84484; 85025; 85610; 86140; 87086; 93005; 99285

== ENCOUNTER → 2019-12-03 | Outpatient (CLI) | payer MEDICARE ==
--- NOTE | 2019-12-03 18:59 | KCIC ---
Left breast diagnostic digital mammograms: Reason for admission: Nodular density on screening mammogram. Comparison is made to mammographic exam dated 09/30/2019. True lateral and coned compression cc views were obtained of the left breast. The area of nodularity does not appear to persist with the additional cc view and an definite nodule is not seen on the lateral view. Considering the parenchymal density, further evaluation with ultrasound will follow. IMPRESSION: No suspicious abnormality with additional views. Ultrasound to follow. Left breast ultrasound: Ultrasound examination of the lateral left breast and axilla was performed. There is ductal ectasia in the 2:00 position. There is ductal ectasia in the retroareolar position. In the retroareolar position there is also a 8.4 x 8.1 x 4.0 mm hypoechoic circumscribed lesion with septation and some internal echogenicity and no vascular flow which probably reflects a complicated cyst. No other cystic or solid lesions are seen. No abnormal appearing lymph nodes are seen in the left axilla. IMPRESSION: Ductal ectasia. 8.4 mm circumscribed nodule with septation and some internal echogenicity probably representing a complicated cyst. Recommend reevaluation with ultrasound in 3 months. BI-RADS Category 3: Probably Benign. "Our facility is accredited by the [employer] Mammography Program." This patient's information has been entered into a reminder system for the patient to be notified with the results of her examination and a target date for the next mammogram. Electronically signed by: Lindsey Magallon MD (12/03/2019 6:56 PM) [id number]
== END ==
LOC: KCIC MAMMO 12:56
PROVIDERS: ATTEND Family Medicine
DX: N60.42 Mammary duct ectasia of left breast (principal); N63.21 Unspecified lump in the left breast, upper outer quadrant; N60.02 Solitary cyst of left breast
CPT/HCPCS: 76641; 77065

== ENCOUNTER → 2020-04-09 | Outpatient (CLI) | payer MEDICARE ==
--- NOTE | 2020-04-09 16:28 | RAD ---
Examination: Limited left breast ultrasound. INDICATION: 64-year-old woman presents for short-term follow-up (3 month) left breast ultrasound in f ollow-up of probably benign complicated subareolar cyst. COMPARISON: Left breast ultrasound of 12/03/2019, left diagnostic mammogram of 12/03/2019 and screeni ng mammogram of 09/30/2019 FINDINGS: Ultrasound of the subareolar left breast again demonstrates duct ectasia with intraductal echogenic n onvascular structures showing some punctate internal echogenic foci. This could represent intraductal debris in the setting of benign duct ectasia versus hypovascular intraductal masses such as papillom a. Echogenic foci could represent punctate calcifications, not as well shown on mammography without m agnification views. There has been no significant interval change in size of the probably benign finding presumed a compl icated cyst, measuring up to 8 mm in maximum length. Sonographic survey of the left axilla reveals no adenopathy. IMPRESSION: Probably benign duct ectasia with intraductal debris. BI-RADS Category 3 Probably benign findings Recommend short-term follow-up left diagnostic mammogram in 3 months with magnification views and foc used left breast ultrasound, targeting the subareolar breast. Electronically signed by: Yeny Sims MD (04/09/2020 4:26 PM) [id number]
== END ==
LOC: US 13:23
PROVIDERS: ATTEND Family Medicine
DX: N60.42 Mammary duct ectasia of left breast (principal); N60.02 Solitary cyst of left breast
CPT/HCPCS: 76641

== ENCOUNTER → 2021-01-12 | Outpatient (CLI) | payer MEDICARE ==
[2020-08-09 11:00] VITALS: BP 178/93
[~2021-01-12] MED LIST changes: +ATOR80TA72 PO; +CAND1TAB PO; -DOXY100C2 PO; +DOXY100C3 PO; +GABA600T7 PO; +LISI30TA4 PO; +METO-239 PO; +NAPR-699 PO; -NAPR250T6 PO; +TIZA-75 PO; -TIZA4TAB2 PO
--- NOTE | 2021-01-13 16:41 | CARD ---
MR#: [id number] Date of Study: 01/12/2021 Ordering Physician: SAMIRA RENE, Referring Physician: SAMIRA RENE, Tech: Viviane Lane [facility] APPROVED REPORT EXAM: Two-dimensional and M-mode echocardiogram with Doppler and color Doppler. Other Information Quality : GoodHR: 82bpm Rhythm : NSR INDICATION Cardiac Disease: CAD Surgery/Intervention CABG: RISK FACTORS Hypertension Hyperlipidemia Diabetes 2D DIMENSIONS RVDd4.1 (2.9-3.5cm)Left Atrium(2D)3.3 (1.6-4.0cm) IVSd1.6 (0.7-1.1cm)Aortic Root(2D)2.9 (2.0-3.7cm) LVDd4.1 (3.9-5.9cm)LVOT Diameter2.0 (1.8-2.4cm) PWd1.4 (0.7-1.1cm)LVDs2.4 (2.5-4.0cm) FS (%) 40.2 %SV51.6 ml Aortic Valve AoV Peak Joe.142.1cm/sAoV VTI20.7cm AO Peak GR.8.1mmHgLVOT Peak Joe.88.9cm/s AO Mean GR.4mmHgAVA (VMAX)2.00cm2 Mitral Valve MV E Gdziamni01.0cm/sMV DECEL OTKH752ef MV A Bcjbdqjx52.1cm/sE/A Ratio0.7 Tricuspid Valve TR P. Bgbizbmh828kk/sTR Peak Gr.14mmHg LEFT VENTRICLE The left ventricle is normal size. There is moderate concentric left ventricular hypertrophy. The lef t ventricular ejection fraction is within normal range. LV ejection fraction is 50 to 55%. There is m ild septal hypokinesis. Transmitral Doppler flow pattern is Grade I-abnormal relaxation pattern. RIGHT VENTRICLE The right ventricle is normal size. There is normal right ventricular wall thickness. The right ventr icular systolic function is normal. ATRIA The left atrium size is normal. The right atrium size is normal. AORTIC VALVE The aortic valve is normal in structure and function. Doppler and Color Flow revealed trace to mild a ortic regurgitation. There is no significant aortic valvular stenosis. MITRAL VALVE The mitral valve is normal in structure and function. There is no evidence of mitral valve prolapse. There is no mitral valve stenosis. Doppler and Color-flow revealed trace to mild mitral regurgitation . TRICUSPID VALVE The tricuspid valve is normal in structure and function. Doppler and Color Flow revealed mild tricusp id regurgitation. Estimated PAP 35 mmHg. There is no tricuspid valve stenosis. PULMONIC VALVE The pulmonary valve is normal in structure and function. Doppler and Color Flow revealed mild to mode rate pulmonic valvular regurgitation. GREAT VESSELS The aortic root is normal in size. The ascending aorta is normal in size. The IVC is normal in size a nd collapses >50% with inspiration. PERICARDIAL EFFUSION There is no evidence of significant pericardial effusion. Critical Notification Critical Value: No <Conclusion> The left ventricle is normal size. The left ventricular ejection fraction is within normal range. LV ejection fraction is 50 to 55%. There is mild septal hypokinesis. There is moderate concentric left ventricular hypertrophy. Doppler and Color Flow revealed trace to mild aortic regurgitation. There is no significant aortic valvular stenosis. Doppler and Color-flow revealed trace to mild mitral regurgitation. Doppler and Color Flow revealed mild tricuspid regurgitation. Estimated PAP 35 mmHg. Signed by : Evelio Curtis MD Electronically Approved : 01/13/2021 16:40:45
== END ==
LOC: ECHO 13:02
PROVIDERS: ATTEND Internal Medicine Cardiovascular Disease
DX: I08.8 Other rheumatic multiple valve diseases (principal); I25.10 Atherosclerotic heart disease of native coronary artery without angina pectoris
CPT/HCPCS: 93306

== ENCOUNTER → 2021-04-08 | Outpatient (CLI) | payer MEDICARE ==
[2020-08-09 11:00] VITALS: BP 178/93
--- NOTE | 2021-04-08 13:01 | RAD ---
MR#: [id number] Date of Study: 04/08/2021 Ordering Physician: SAMIRA RENE, Referring Physician: SAMIRA RENE, Tech: Rohini Kauffman RDMS, MAX, RTR APPROVED REPORT Right Lower Extremity Venous Study for DVT Patient Location: OUT-PATIENT Indications Lower Extremity Edema: Right Findings Grayscale images of deep veins right lower extremity were grossly unremarkable with fully compressibl e common femoral, superficial femoral and popliteal veins. Spectral waveform and color duplex analysi s were within normal limits. Below the knee there was spontaneous flow noted in the calf veins. No ev idence of deep venous thrombosis. Critical Notification Critical Value: No <Conclusion> Right lower extremity venous duplex scan did not show any evidence of deep venous thrombosis. Signed by : Justin Hoang, Electronically Approved : 04/08/2021 13:00:50
== END ==
LOC: US 10:01
PROVIDERS: ATTEND Internal Medicine Cardiovascular Disease
DX: M79.89 Other specified soft tissue disorders (principal)
CPT/HCPCS: 93971